=== PATIENT | male | born 1940 | race Caucasian/White ===

== ENCOUNTER → 2021-02-13 | Outpatient (CLI) | payer MEDICARE ==
--- NOTE | 2021-02-13 16:04 | XR ---
Right hip HISTORY: Right hip pain 2 views of the right hip Marginal spurring is present in the femoral head. Bone mineralization is reduced. Alignment is mainta ined. No fracture or dislocation. There are dense vascular calcifications noted incidentally. IMPRESSION: Osteoarthritis and osteopenia
== END | disposition home or self-care (01) ==
LOC: RADXRMAIN 13:09
PROVIDERS: ATTEND Internal Medicine
DX: M16.11 Unilateral primary osteoarthritis, right hip (principal); M85.88 Other specified disorders of bone density and structure, other site
CPT/HCPCS: 73502

== ENCOUNTER → 2021-03-20 | Outpatient (CLI) | payer MEDICARE ==
[2021-03-20 19:22] LABS: Basophils # (A) 0.03 X 10*3/uL (0.00-0.10); Basophils % (A) 0.4 %; Eosinophils # (A) 0.17 X 10*3/uL (0.04-0.35); HCT 34.6 % (39.6-50.0); HGB 10.6 g/dL (13.0-17.0); Lymphocytes % (A) 10.7 %; MCH 31.9 pg (27.0-32.0); MCHC 30.6 g/dL (32.0-37.0); MCV 104.2 fL (80.0-97.0); Mean Platelet Volume 9.9 fL (9.5-12.2); Monocytes % (A) 7.2 %; Neutrophils # (A) 6.54 X 10*3/uL (1.80-7.70); Platelet Count 166 X 10*3/uL (140-440); RBC 3.32 X 10*6/uL (4.40-5.60); RDW 12.7 % (11.5-14.5); WBC 8.38 X 10*3/uL (4.50-10.00)
[2021-03-21 00:08] LABS: % Iron Saturation 23.05 (15.00-50.00); African American GFR (CKD) 49.5 (60.0-200.0); Albumin/Globulin Ratio 1.82 (1.60-3.17); Anion Gap 11.1 mmol/L (4.00-12.00); BUN/Creat Ratio 16.8 Ratio (12.00-20.00); Blood Urea Nitrogen 25.2 mg/dL (9.0-27.0); Calcium 9.5 mg/dL (8.7-10.3); Carbon Dioxide 27.5 mmol/L (21.6-31.8); Folate, Serum 16.9 ng/mL (4.40-31.00); Globulin 2.2 g/dL (1.6-3.3); Magnesium 1.7 mg/dL (1.5-2.4); Non-African American GFR(CKD) 42.7 (60.0-200.0); Potassium 4.1 mmol/L (3.5-5.5); T4, Free (Free Thyroxine) 1.43 ng/dL (0.800-1.800); Total Bilirubin 0.3 mg/dL (0.30-1.20); Total Protein 6.1 g/dL (6.2-8.2)
== END | disposition home or self-care (01) ==
LOC: LABWHC1 14:06
PROVIDERS: ATTEND Internal Medicine
DX: E11.9 Type 2 diabetes mellitus without complications (principal); D64.9 Anemia, unspecified
CPT/HCPCS: 36415; 80053; 82306; 82607; 82746; 83036; 83540; 83550; 83735; 84439; 84443; 85025

== ENCOUNTER → 2022-02-27 | Outpatient (CLI) | payer MEDICARE ==
--- NOTE | 2022-02-27 15:16 | US ---
EXAMINATION TYPE: US kidneys/renal and bladder DATE OF EXAM: 02/27/2022 COMPARISON: NONE CLINICAL HISTORY: N18.30 stage 3 chronic kidney disease. CKD EXAM MEASUREMENTS: Right Kidney: 12.0 x 5.8 x 5.6 cm Left Kidney: 12.4 x 4.6 x 4.1 cm Right Kidney: Multicystic, largest cyst measured= 5.0 x 4.0 x 4.7 cm . No shadowing calculi, hydrone phrosis, or solid mass. Left Kidney: Multicystic, largest cyst measured= 6.8 x 7.0 x 7.8 cm . No shadowing calculi, hydronep hrosis, or solid mass. Bladder: Enlarged heterogenous prostate protruding into posterior bladder wall measuring 6.2 x 4.4 x 4.8 cm. Urinary bladder is anechoic. Bilateral Jets seen: No Incidental finding liver cyst= 5.1 x 4.7 cm IMPRESSION: 1. No hydronephrosis or shadowing calculi. 2. Bilateral renal cysts. 3. Enlarged heterogenous prostate gland protruding into the bladder base. Correlation with PSA value s is recommended. 4. Hepatic cyst.
== END | disposition home or self-care (01) ==
LOC: RADUSWWP 14:37
PROVIDERS: ATTEND Internal Medicine
DX: N18.30 Chronic kidney disease, stage 3 unspecified (principal)
CPT/HCPCS: 76770

== ENCOUNTER → 2022-03-12 | Outpatient (CLI) | payer MEDICARE ==
[2022-03-12 18:40] LABS: African American GFR (CKD) 42.3 (60.0-200.0); Anion Gap 9.5 mmol/L (10.00-18.00); BUN/Creat Ratio 14.12 Ratio (12.00-20.00); Calcium 9.4 mg/dL (8.7-10.3); Carbon Dioxide 26.5 mmol/L (20.0-27.5); Non-African American GFR(CKD) 36.5 (60.0-200.0); PSA Annual Screen 3.7 ng/mL (0.000-4.000); Potassium 4.5 mmol/L (3.5-5.5)
== END | disposition home or self-care (01) ==
LOC: LABWHC1 12:22
PROVIDERS: ATTEND Internal Medicine
DX: N18.30 Chronic kidney disease, stage 3 unspecified (principal); N40.0 Benign prostatic hyperplasia without lower urinary tract symptoms
CPT/HCPCS: 80048; 36415; G0103

== ENCOUNTER → 2024-04-14 | Outpatient (CLI) | payer MEDICARE, BC ==
--- NOTE | 2024-04-14 18:17 | XR ---
EXAMINATION TYPE: XR chest 2V DATE OF EXAM: 04/14/2024 3:02 PM COMPARISON: None CLINICAL INDICATION: Male, 83 years old with history of J18.9 PNEUMONIA, UNSPECIFIED ORGANISM; [facility] TECHNIQUE: XR chest 2V Frontal and lateral views of the chest. FINDINGS: Lungs/Pleura: Blunting of the left costophrenic angle. There is no evidence of pleural effusion, foca l consolidation, or pneumothorax. Pulmonary vascularity: Unremarkable. Heart/mediastinum: Cardiomediastinal silhouette is unremarkable. Left atrial appendage occlusion nagi ce is present. Three lead cardiac conduction device overlying the left hemithorax with lead tips proj ecting over the right ventricle, right atrium and coronary sinus. Musculoskeletal: No acute osseous pathology. IMPRESSION: Small to moderate left pleural effusion. [facility], , 04/14/2024 6:15 PM
== END | disposition home or self-care (01) ==
LOC: RADXRMAIN 14:36
PROVIDERS: ATTEND Internal Medicine
DX: J90 Pleural effusion, not elsewhere classified (principal); J18.9 Pneumonia, unspecified organism
CPT/HCPCS: 71046

== ENCOUNTER → 2024-04-26 | Outpatient (CLI) | payer MEDICARE ==
[2024-04-26 19:38] LABS: BUN/Creat Ratio 18.65 Ratio (12.00-20.00); Blood Urea Nitrogen 31.7 mg/dL (9.0-27.0); Calcium 9.2 mg/dL (8.7-10.3); Carbon Dioxide 25.7 mmol/L (21.6-31.8); Chloride 107 mmol/L (96-109); Glucose 125 mg/dL (70-110); Magnesium 1.4 mg/dL (1.5-2.4); Potassium 4.4 mmol/L (3.5-5.5); Sodium 144 mmol/L (135-145)
== END | disposition home or self-care (01) ==
LOC: LABWHC1 12:19
PROVIDERS: ATTEND Internal Medicine
DX: E83.42 Hypomagnesemia (principal)
CPT/HCPCS: 36415; 80048; 83735

== ENCOUNTER → 2024-05-13 | Outpatient (CLI) | payer MEDICARE ==
[2024-05-13 20:51] LABS: BUN/Creat Ratio 18.47 Ratio (12.00-20.00); Blood Urea Nitrogen 35.1 mg/dL (9.0-27.0); Calcium 10.1 mg/dL (8.7-10.3); Carbon Dioxide 27.5 mmol/L (21.6-31.8); Chloride 104 mmol/L (96-109); Glucose 137 mg/dL (70-110); Magnesium 1.6 mg/dL (1.5-2.4); Potassium 5.3 mmol/L (3.5-5.5); Sodium 143 mmol/L (135-145)
== END | disposition home or self-care (01) ==
LOC: LABWHC1 14:05
PROVIDERS: ATTEND Internal Medicine
DX: N18.30 Chronic kidney disease, stage 3 unspecified (principal)
CPT/HCPCS: 36415; 80048; 83735

== ENCOUNTER → 2024-05-28 | Outpatient (CLI) | payer MEDICARE ==
--- NOTE | 2024-05-28 14:42 | XR ---
EXAMINATION TYPE: XR foot complete LT, XR toes LT DATE OF EXAM: 05/28/2024 2:31 PM COMPARISON: 05/28/2024 CLINICAL INDICATION: Male, 83 years old with history of L03.032 CELLULITIS OF LEFT TOE; PHH, pain TECHNIQUE: XR foot complete LT, XR toes LT 3 views of the left foot and 3 views of the left toes FINDINGS: Soft tissue swelling without evidence of subcutaneous gas or erosion to suggest osteomyelitis. No amor dence of any acute osseous pathology. Calcaneal plantar spurring is present. Calcaneal Achilles enthe sophyte. Atherosclerosis of the arterial vasculature. Multifocal degeneration changes throughout the joints of the foot with osteophyte formation and joint space narrowing. IMPRESSION: 1. Soft tissue signed out evidence for osseous erosion. 2. No evidence of acute fracture. 3. Multifocal degeneration changes throughout the joints of the foot. [facility], , 05/28/2024 2:40 PM
== END | disposition home or self-care (01) ==
LOC: RADXRMAIN 14:08
PROVIDERS: ATTEND Internal Medicine
DX: M19.072 Primary osteoarthritis, left ankle and foot (principal); L03.032 Cellulitis of left toe

== ENCOUNTER → 2024-06-07 | Outpatient (CLI) | payer MEDICARE ==
--- NOTE | 2024-06-07 13:45 | XR ---
EXAMINATION TYPE: XR chest 2V DATE OF EXAM: 06/07/2024 1:37 PM COMPARISON: Chest radiographs from 04/14/2024 TECHNIQUE: XR chest 2V Frontal and lateral views of the chest. CLINICAL INDICATION:Male, 83 years old with history of S30.0XXD; FINDINGS: Lungs/Pleura: There is flattening of the diaphragm with increased lucency of the lungs. No evidence o f pneumothorax. No right pleural effusion. Trace left pleural effusion. Linear scarring within the le ft lower lobe. Biapical pleural thickening. Pulmonary vascularity: Unremarkable. Heart/mediastinum: Cardiomediastinal silhouette is unremarkable. Atherosclerotic calcifications are seen in the aorta. Three lead cardiac conduction device overlying the left hemithorax with lead tips projecting over the right ventricle, right atrium and coronary sinus. Atrial septal occlusion device. Coronary calcifications and/or stents. Musculoskeletal: No acute osseous pathology. Other findings: None Lines/Tubes: Endotracheal tube with distal tip xx cm above the kavitha Nasogastric tube with its distal tip and side-port projecting under the diaphragm. IMPRESSION: 1. Decreased now trace left pleural effusion. 2. COPD changes. [facility], , 06/07/2024 1:43 PM
== END | disposition home or self-care (01) ==
LOC: RADXRMAIN 13:27
PROVIDERS: ATTEND Internal Medicine
DX: J44.9 Chronic obstructive pulmonary disease, unspecified (principal); J90 Pleural effusion, not elsewhere classified; S30.0XXD Contusion of lower back and pelvis, subsequent encounter; X58.XXXD Exposure to other specified factors, subsequent encounter
CPT/HCPCS: 71046